=== PATIENT | female | born 1985 | race African-American/Black ===

== ENCOUNTER 2020-01-19 10:02 | Emergency (ER) | payer OTHER ==
[2020-01-19 10:17] VITALS: BP 118/74; PULSE 86; TEMP 97.6; BMI 26.6
[2020-01-19] MEDS ORDERED: IBUPROFEN 600 MG TABLET (FP) PO ONE ×2 (10:27→10:28)
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
== END 2020-01-19 10:55 | disposition home or self-care (01) ==
LOC: JER 10:02
DX: M62.838 Other muscle spasm (principal)
CPT/HCPCS: 99283-25

== ENCOUNTER 2020-06-27 17:47 | Emergency (ER) | payer OTHER ==
[2020-06-27 18:11] VITALS: BP 111/73; PULSE 78; TEMP 98.2; BMI 26.6
== END 2020-06-27 19:05 | disposition home or self-care (01) ==
LOC: JERFT 17:47
DX: S13.4XXA Sprain of ligaments of cervical spine, initial encounter (principal); M62.838 Other muscle spasm
CPT/HCPCS: 99282-25